=== PATIENT | male | born 1960 | race Two or more races ===

== ENCOUNTER 2019-08-11 22:06 | Emergency (ER) | payer BC ==
[2019-08-11 22:27] LABS: ABS Eosinophils 0.2 10^3/ul (0-0.6); ABS Lymphocytes 1.6 10^3/ul (1.0-4.8); ABS Monocytes 0.7 10^3/ul (0-0.8); ABS Neutrophils 2.6 10^3/ul (1.5-7.7); Eosinophil % 3.4 %; Hematocrit 43 % (42-52); Lymphocyte % 31.3 %; Mean Corpuscular HGB Conc 35 g/dL (31-36); Mean Corpuscular Hemoglobin 35 pg (27-31); Mean Corpuscular Volume 100 fL (80-94); Mean Platelet Volume 8.1 fL (7.4-10.4); Nucleated Red Blood Cells % 0.1; Platelet Count 268 10^3/uL (150-450); Red Blood Count 4.24 10^6 /uL (4.18-5.48); Red Cell Distribution Width 13 % (10-15); White Blood Count 5.1 10^3/uL (3.5-10.8)
[2019-08-11 22:43] LABS: Albumin 4.5 g/dL (3.2-5.2); Calcium 9.7 mg/dL (8.6-10.3); Potassium 3.9 mmol/L (3.5-5.0); Total Bilirubin 0.7 mg/dL (0.2-1.0)
[2019-08-11 22:45] LABS: Troponin I 0.01 ng/mL (<0.03)
[2019-08-11] MEDS ORDERED: LORazepam TAB(*) 1 MG PO ONE (23:27)
--- NOTE | 2019-08-11 23:29 | ED ---
Dizziness - HPI Summary HPI Summary: Patient is a 59 y/o M presenting to the ED for a chief complaint of dizziness that began 2-3 hours BREAK[facility] TENDER to [facility]. Patient is present with his . Patient also admits lightheadedness, confusion, palpitations, and right-sided chest pain that the patient describes as discomfort and tightness. He states that his symptoms began after eating dinner and drinking alcohol. He notes the chest pain worsens with lying down. Patient admits recent stress from work, but denies recent illness. PMHx is significant for Type I DM, HLD, and rheumatoid arthritis. In December 2018, patient states he had an abnormal EKG at Dr. Blake's office and was prescribed aspirin by Dr. Peterson. - History Of Current Complaint Chief Complaint: EDDizziness Stated Complaint: CHEST PAIN PER PT Time Seen by Provider: 08/11/19 23:19 Hx Obtained From: Patient Onset/Duration: Still Present Timing: Constant Severity Initially: Moderate Severity Currently: Moderate Character: Dizzy Aggravating Factor(s): Other - Lying down Alleviating Factor(s): Nothing Associated Signs And Symptoms: Positive: Chest Pain, Palpitations - Allergies/Home Medications Allergies/Adverse Reactions: Allergies Allergy/AdvReac Type Severity Reaction Status Date / Time No Known Allergies Allergy Verified 08/11/19 22:17 PMH/Surg Hx/FS Hx/Imm Hx Previously Healthy: Yes Endocrine/Hematology History: Reports: Hx Diabetes - type 1 Cardiovascular History: Reports: Hx Hypercholesterolemia Musculoskeletal History: Reports: Hx Arthritis - Rheumatoid arthritis, Hx Rheumatoid Arthritis Sensory History: Denies: Hx Legally Blind, Hx Deafness Opthamlomology History: Denies: Hx Legally Blind EENT History: Denies: Hx Deafness - Surgical History Surgical History: None Surgery Procedure, Year, and Place: None Infectious Disease History: No Infectious Disease History: Denies: Traveled Outside the [place] in Last 30 Days - Family History Known Family History: Negative: Cardiac Disease, Diabetes - Social History Occupation: Employed Full-time Lives: With Family Alcohol Use: Occasionally Hx Substance Use: No Substance Use Type: Reports: None Hx Tobacco Use: No Smoking Status (MU): Never Smoked Tobacco Review of Systems Positive: Palpitations, Chest Pain - Right-sided Neurological: Other - Positive dizziness, lightheadedness, and confusion All Other Systems Reviewed And Are Negative: Yes Physical Exam - Summary Physical Exam Summary: Appearance: Well-appearing, Well-nourished, lying in bed comfortably Skin: Warm, dry, no obvious rash Eyes: sclera anicteric, no conjunctival pallor ENT: mucous membranes moist, pharynx appears normal Neck: Supple, nontender Respiratory: Clear to auscultation, no signs of respiratory distress Cardiovascular: Normal S1, S2. No murmurs. Normal distal pulses in tibial and radial bilaterally. Abdomen: Soft, nontender, normal active bowel sounds present Musculoskeletal: Normal, Strength/ROM Intact Neurological: A&Ox3, awake and alert, mentation is normal, speech is fluent and appropriate Psychiatric: affect is normal, does not appear anxious or depressed Triage Information Reviewed: Yes Vital Signs On Initial Exam: Initial Vitals Temp Pulse Resp BP Pulse Ox 98.3 F 71 18 165/84 100 08/11/19 22:12 08/11/19 22:12 08/11/19 22:12 08/11/19 22:12 08/11/19 22:12 Vital Signs Reviewed: Yes Procedures - Sedation Patient Received Moderate/Deep Sedation with Procedure: No Diagnostics - Vital Signs Vital Signs Temp Pulse Resp BP Pulse Ox 08/11/19 22:12 98.3 F 71 18 165/84 100 - Laboratory Lab Results: Lab Results 08/11/19 08/11/19 Range/Units 22:18 22:18 WBC 5.1 (3.5-10.8) 10^3/uL RBC 4.24 (4.18-5.48) 10^6 /uL Hgb 15.0 (14.0-18.0) g/dL Hct 43 (42-52) % MCV 100 H (80-94) fL MCH 35 H (27-31) pg MCHC 35 (31-36) g/dL RDW 13 (10-15) % Plt Count 268 (150-450) 10^3/uL MPV 8.1 (7.4-10.4) fL Neut % (Auto) 50.5 % Lymph % (Auto) 31.3 % Rowan % (Auto) 13.9 % Eos % (Auto) 3.4 % Baso % (Auto) 0.9 % Absolute Neuts (auto) 2.6 (1.5-7.7) 10^3/ul Absolute Lymphs (auto) 1.6 (1.0-4.8) 10^3/ul Absolute Monos (auto) 0.7 (0-0.8) 10^3/ul Absolute Eos (auto) 0.2 (0-0.6) 10^3/ul Absolute Basos (auto) 0.0 (0-0.2) 10^3/ul Absolute Nucleated RBC 0.0 10^3/ul Nucleated RBC % 0.1 Sodium 140 (135-145) mmol/L Potassium 3.9 (3.5-5.0) mmol/L Chloride 105 (101-111) mmol/L Carbon Dioxide 27 (22-32) mmol/L Anion Gap 8 (2-11) mmol/L BUN 15 (6-24) mg/dL Creatinine Pending Est GFR ( Amer) Pending Est GFR (Non-Af Amer) Pending BUN/Creatinine Ratio Pending Glucose 125 H (70-100) mg/dL Calcium 9.7 (8.6-10.3) mg/dL Total Bilirubin 0.70 (0.2-1.0) mg/dL AST 41 H (13-39) U/L ALT 32 (7-52) U/L Alkaline Phosphatase 46 (34-104) U/L Troponin I 0.01 (<0.03) ng/mL Total Protein Pending Albumin 4.5 (3.2-5.2) g/dL Globulin Pending Albumin/Globulin Ratio Pending Result Diagrams: [id number] 22:18 1219 22:18 Lab Statement: Any lab studies that have been ordered have been reviewed, and results considered in the medical decision making process. - Radiology Chest X-ray Radiology Interpretation Completed By: ED Physician Summary of Radiographic Findings: Chest X-ray IMPRESSION: no acute process. Reviewed and interpreted by Dr. Lowe, pending official radiology report. - EKG 22:07 Cardiac Rate: NL - 74 BPM EKG Rhythm: Sinus Rhythm ST Segment: Normal Ectopy: None Summary of EKG Findings: EKG at 22:07 shows NSR at 74 BPM, P waves, QRS complex , and T waves are within normal limits, T waves and intervals are normal, no ischemic changes. No STEMI. This is a normal EKG. Reviewed and interpreted by Dr. Lowe. Dizzy Course/Dx - Course Course Of Treatment: Patient is a 59 y/o M presenting to the ED for a chief complaint of dizziness that began 2-3 hours BREAK[facility] TEND[facility] to [facility]. Patient is present with his . Patient also admits lightheadedness, confusion, palpitations, and right-sided chest pain that the patient describes as discomfort and tightness. He states that his symptoms began after eating dinner and drinking alcohol. He notes the chest pain worsens with lying down. Patient admits recent stress from work, but denies recent illness. PMHx is significant for Type I DM, HLD, and rheumatoid arthritis. In December 2018, patient states he had an abnormal EKG at Dr. Blake's office and was prescribed aspirin by Dr. Peterson. On exam, unremarkable findings. In the ED course, patient was given Ativan 1 mg PO. Laboratory abnormal findings: MCV 100, MCH 35, glucose 125, AST 41, serum alcohol 51. EKG at 22:07 shows NSR at 74 BPM, P waves, QRS complex, and T waves are within normal limits, T waves and intervals are normal, no ischemic changes. No STEMI. This is a normal EKG. Chest X-ray IMPRESSION: no acute process. Patient will be discharged with a diagnosis of chest pain. Follow up with PCP in 2-3 days. - Diagnoses Provider Diagnoses: Chest pain Discharge ED - Sign-Out/Discharge Documenting (check all that apply): Patient Departure - Discharge - Discharge Plan Condition: Good Disposition: HOME Patient Education Materials: Noncardiac Chest Pain (ED) Referrals: Singh Greer PSYCHOLOGICAL STRESS EVALUATOR [Primary Care Provider] - Additional Instructions: The tests we ran tonight did not show any sign of heart damage or that the heart is causing your symptoms. It is safe for you to go home and rest. Please contact your doctor in the morning for a followup. - Billing Disposition and Condition Condition: GOOD Disposition: Home - Attestation Statements Document Initiated by Scribe: Yes Documenting Scribe: Jaquelin Spence Provider For Whom Casey is Documenting (Include Credential): Rex Lowe MD Scribe Attestation: Jaquelin Loya scribed for Rex Lowe MD on 08/12/19 at 0630. Scribe Documentation Reviewed: Yes Provider Attestation: The documentation as recorded by the Jaquelin seaman accurately reflects the service I personally performed and the decisions made by me, Rex Lowe MD Status of Scribe Document: Viewed
[2019-08-12 01:41] LABS: Albumin/Globulin Ratio 1.7 (1-3); BUN/Creatinine Ratio 15.5 (8-20); EGFR African American 96.5 (>60); EGFR Non-African American 79.8 (>60); Globulin 2.6 g/dL (2-4); Total Protein 7.1 g/dL (6.4-8.9)
[2019-08-12 03:11] VITALS: BP 145/74
== END 2019-08-12 03:07 | disposition home or self-care (01) ==
LOC: ED 22:06
DX: R07.9 Chest pain, unspecified (principal); R42 Dizziness and giddiness; R00.2 Palpitations; E78.00 Pure hypercholesterolemia, unspecified; E10.9 Type 1 diabetes mellitus without complications; Z79.899 Other long term (current) drug therapy
CPT/HCPCS: 36415; 71046; 80053; 80320; 84484; 85025; 93005; 99283; A9270-GY; G0480